=== PATIENT | female | born 1965 | race Caucasian/White ===

== ENCOUNTER 2019-01-05 08:43 | Emergency (ER) ==
[2019-01-05 09:01] VITALS: BP 90/69; TEMP 97.7; BMI 34.4
[2019-01-05] MEDS ORDERED: SODIUM CHLORIDE 1,000 ML IV STA (09:04)
[2019-01-05] MEDS ORDERED: PEPCID IVP STA (09:05)
[2019-01-05] MEDS ORDERED: ZOFRAN 4 MG/2 ML IVP STA (09:05)
--- NOTE | 2019-01-05 09:47 | ED.PDOC ---
General ED Provider: Dr. DAY HOFFMAN Chief Complaint: Overdose Stated Complaint: Nausea and vomiting. Accidental consumption household cleanser -Mr Clean with Gain earlier this morning. Step sister states she was driving and Monica suddenly became ill, had emeis and she noted odor suspicious for a chemical like Mr Clean. Patient normally rinses mouth our with mouth wash in AM and suspects she may have accidenly have use the houehold liquid cleaning agent. [facility] CONTACTED AFTER INITIAL ASSESSMENT BY ER DEPARTMENT RN MASHA WITH INSTRUCTIONS /RECOMMENDATIONS GIVEN-SEE RN NOTE FOR SPECIFICS Time Seen by Physician: 09:00 Mode of Arrival: Wheelchair Information Source: Family Primary Care Provider: ELIZABETH HARE Nursing and Triage Documentation Reviewed and Agree: Yes Does patient meet sepsis criteria?: No System Inflammatory Response Syndrome: Not Applicable Sepsis Protocol: For patient's 13 years and over: Temp is 96.8 and below OR 101 and greater Pulse >90 BPM Resp >20/minute Acutely Altered Mental Status Are patient's symptoms suggestive of a new infection, such as: -Pneumonia -Skin, Soft Tissue -Endocarditis -UTI -Bone, Joint Infection -Implantable Device -Acute Abdominal Infection -Wound Infection -Meningitis -Blood Stream Catheter Infection -Unknown GI Complaint Exam - Vomiting/Diarrhea Complaint/Exam Onset/Duration: 30 min ago Symptoms Are: Still present Episodes of Vomiting over last 24 Hours: 3 Episodes of Diarrhea Over Last 24 Hours: 0 Initial Severity: Moderate Current Severity: Mild Character of Vomiting: Reports: Bilious Character of Diarrhea: Denies: Bloody, Watery, Mucoid, Malodorous Aggravating: Reports: None Alleviating: Reports: None Associated Signs and Symptoms: Reports: Light-headedness Related History: Denies: Similar episode Non-GI Risk Factors: Reports: None Surgical Obstruction Risk Factors: Reports: None Related Surgical History: Reports: None Abdominal Findings: Present: None Kussmaul Respirations Present: No Differential Diagnoses: Other (Acute Gastitis; toxic ingestion) Review of Systems - Review Of Systems Constitutional: Reports: No symptoms Eyes: Reports: No symptoms Ears, Nose, Mouth, Throat: Reports: No symptoms Respiratory: Reports: No symptoms Cardiac: Reports: No symptoms GI: Reports: Nausea, Vomiting : Reports: No symptoms Musculoskeletal: Reports: No symptoms Skin: Reports: No symptoms Neurological: Reports: No symptoms Endocrine: Reports: No symptoms Hematologic/Lymphatic: Reports: No symptoms All Other Systems: Reviewed and Negative Past Medical History - Past Medical History Previously Healthy: Yes Endocrine: Reports: None Cardiovascular: Reports: None Respiratory: Reports: None Hematological: Reports: None Gastrointestinal: Reports: None Genitourinary: Reports: None Neuro/Psych: Reports: None Musculoskeletal: Reports: None Cancer: Reports: None Last Menstrual Period: none - Surgical History General Surgical History: Reports: None - Family History Family History: Reports: None - Social History Smoking Status: Never smoker Hx Substance Use: No Alcohol Screening: None Physical Exam - Physical Exam Appearance: Obese Ill-appearing: None Pain Distress: None Eyes: MAU, EOMI, Conjunctiva clear ENT: Ears normal, Nose normal, Oropharynx normal Neck: Supple Respiratory: Airway patent, Breath sounds clear, Breath sounds equal, Respirations nonlabored Cardiovascular: RRR, Pulses normal, No rub, No murmur GI/: Soft, No Organomegaly, Tender, Bowel sounds hypoactive Musculoskeletal: Normal strength, ROM intact, No edema, No calf tenderness Skin: Warm, Dry, Normal color Neurological: Sensation intact, Motor intact, Reflexes intact, Cranial nerves intact, Alert, Oriented Psychiatric: Affect appropriate, Mood appropriate Critical Care Note - Critical Care Note Total Time (mins): 60 Course - Course Hematology/Chemistry: 01/05/19 09:15 01/05/19 09:15 Orders, Labs, Meds: Lab Review 01/05/19 01/05/19 09:15 09:15 WBC 5.67 RBC 3.84 L Hgb 12.2 Hct 36.7 L MCV 95.6 MCH 31.8 H MCHC 33.2 RDW Coeff of [place] 13.0 Plt Count 100 L Immature Gran % (Auto) 0.2 Neut % (Auto) 55.2 Lymph % (Auto) 33.5 [place] % (Auto) 7.1 Eos % (Auto) 3.5 Baso % (Auto) 0.5 Immature Gran # (Auto) 0.0 Neut # (Auto) 3.1 Lymph # (Auto) 1.9 [place] # (Auto) 0.4 Eos # (Auto) 0.2 Baso # (Auto) 0.0 Sodium 135.5 Potassium 3.60 Chloride 97.7 L Carbon Dioxide 25.9 Anion Gap 15.50 BUN 6.0 L Creatinine 0.74 Estimated GFR (MDRD) 83.00 BUN/Creatinine Ratio 8.10 Glucose 140.0 H Calcium 8.76 Total Bilirubin 0.41 AST 19.7 ALT 11.8 Alkaline Phosphatase 37.0 L Total Protein 6.09 L Albumin 3.52 Globulin 2.57 Albumin/Globulin Ratio 1.36 Lipase 61.6 Orders Category Date Time Status IV [ED IV/MEDIPORT/POWERPORT] .ONCE EMERGENCY 01/05/19 09:04 Active CBC W/ AUTO DIFF Stat LAB 01/05/19 09:15 Completed CMP [COMPREHENSIVE METABOLIC PANEL] Stat LAB 01/05/19 09:15 Completed GASTRIC OCCULT BLOOD AND PH Stat LAB 01/05/19 09:06 Ordered LIPASE Stat LAB 01/05/19 09:15 Completed 0.9 % Sodium Chloride [Saline Flush] MEDS 01/05/19 09:04 Active 1 syr IVF PRN PRN Famotidine Inj [Pepcid] MEDS 01/05/19 09:05 Discontinued 20 mg IVP ONCE STA Ondansetron HCl/Pf [Zofran 4 mg/2 ml] MEDS 01/05/19 09:05 Discontinued 4 mg IVP ONCE STA Sodium Chloride 0.9% [Sodium Chloride] 1,000 ml MEDS 01/05/19 09:04 Active IV BOLUS Medications Generic Name Dose Route Start Last Admin Trade Name Freq PRN Reason Stop Dose Admin Sodium Chloride 1,000 mls @ 500 mls/hr 01/05/19 09:04 01/05/19 10:32 Sodium Chloride IV 01/05/19 11:03 Not Given BOLUS STA Sodium Chloride 1 syr 01/05/19 09:04 Saline Flush IVF PRN PRN To flush IV Discontinued Medications Generic Name Dose Route Start Last Admin Trade Name Freq PRN Reason Stop Dose Admin Famotidine 20 mg 01/05/19 09:05 01/05/19 10:31 Pepcid IVP 01/05/19 09:06 Not Given ONCE STA Ondansetron HCl 4 mg 01/05/19 09:05 01/05/19 10:32 Zofran 4 Mg/2 Ml IVP 01/05/19 09:06 Not Given ONCE STA Vital Signs: Temp Pulse Resp BP Pulse Ox 01/05/19 08:44 97.7 F 71 20 90/69 98 Departure - Departure Time of Disposition: 10:45 Disposition: HOME SELF-CARE Discharge Problem: Accidental ingestion of toxic substance, Acute gastritis Instructions: Gastritis (DC), Poison Proofing Your Home (ED), Acute Nausea and Vomiting (ED) Condition: Good Pt referred to PMD for follow-up: Yes IPMP verified?: No Additional Instructions: RESUME DIET TOLERATES KEEP HOUSE HOLD CHEMICALS OUT OF HER REACH TO AVOID ACCIDENTAL EXPOSURE Allergies/Adverse Reactions: Allergies No Known Allergies Allergy (Verified 01/05/19 08:52) Home Medications: Ambulatory Orders Alprazolam [Xanax] 1 mg PO QID PRN 07/26/18 Divalproex Sodium [Depakote] 1,000 mg PO BEDTIME 07/26/18 Trazodone HCl 300 mg PO BEDTIME 07/26/18 Disposition Discussed With: Family (DISCUSSED DANGERS OF TOXIC INGESTION OF CHEMICALS) Additional Information: 10:15 AM PATIENT AMBULATED TO ACCOMPANIED BY HER SISTER. SYMPTOMATIC AND ACTING NORMALLY. NO FURTHER NAUSEA AND VOMITING. OFFERED HER APPLE JUICE AND WATER.TOLERATED WELL. REQUESTING DISCHARGE HOME REASSESSED AND CLINICALLY STABLE AND READY FOR DISCHARGE TO HOME WITH HER SISTER
== END 2019-01-05 11:11 | disposition home or self-care (01) ==
LOC: ED 08:43
DX: T65.891A Toxic effect of other specified substances, accidental (unintentional), initial encounter (principal); K29.00 Acute gastritis without bleeding
CPT/HCPCS: 36415; 80053; 83690; 85025; 99282